=== PATIENT | female | born 1970 | race Caucasian/White ===

== ENCOUNTER → 2016-09-27 | Outpatient (CLI) | payer OTHER | END | disposition home or self-care (01) | LOC: LABWHC1 16:15 | PROVIDERS: ATTEND Internal Medicine Endocrinology, Diabetes & Metabolism | DX: C73 Malignant neoplasm of thyroid gland (principal) | CPT/HCPCS: 36415; 84443 ==

== ENCOUNTER → 2016-10-15 | Outpatient (CLI) | payer OTHER | END | disposition home or self-care (01) | LOC: LABWHC1 10:25 | PROVIDERS: ATTEND Internal Medicine Endocrinology, Diabetes & Metabolism | DX: C73 Malignant neoplasm of thyroid gland (principal) | CPT/HCPCS: 36415; 84432; 84443; 86800 ==

== ENCOUNTER → 2016-11-12 | Outpatient (CLI) | payer OTHER | LOC: LABWHC1 11:03 | PROVIDERS: ATTEND Internal Medicine Endocrinology, Diabetes & Metabolism | DX: C73 Malignant neoplasm of thyroid gland (principal) | CPT/HCPCS: 36415; 84432; 84443; 86800 ==

== ENCOUNTER → 2016-11-30 | Outpatient (CLI) | payer OTHER ==
--- NOTE | 2016-11-30 14:48 | US ---
EXAMINATION TYPE: US thyroid st tissue head/neck DATE OF EXAM: 11/30/2016 1:14 PM COMPARISON: NM study CLINICAL HISTORY: C73 Mailgnant neoplasm of thyroid gland. Pt has had thyroidectomy since previous US GLAND SIZE: Right Lobe: Surgically absent cm Left Lobe: Surgically absent cm Isthmus Thickness: Surgically absent cm Bilateral neck scanned, Probable hypoechoic lymph node right lateral neck= 0.5 cm AP measurement, pt also states pain at this site/ Probable hypoechoic lymph node left lateral neck= 0.5 cm AP measuremen t/ No evidence of residual thyroid tissue seen by ultrasound. IMPRESSION: 1. Normal post thyroidectomy thyroid. No recurrent mass is evident. 2. Probable lymph node left neck.
== END | disposition home or self-care (01) ==
LOC: RADUSWWP 12:47
PROVIDERS: ATTEND Internal Medicine Endocrinology, Diabetes & Metabolism
DX: C73 Malignant neoplasm of thyroid gland (principal); E89.0 Postprocedural hypothyroidism
CPT/HCPCS: 76536

== ENCOUNTER → 2016-12-03 | Outpatient (CLI) | payer OTHER ==
[2016-12-03 10:32] LABS: Anisocytosis Slight; CH 20.1; HCT 36.5 % (34.0-46.0); HGB 10.6 gm/dL (11.4-16.0); Hypochromasia Marked; MCH 20.9 pg (25.0-35.0); MCV 72.1 fL (80.0-100.0); Mean Platelet Volume 6.4; Microcytosis Moderate; RBC 5.06 m/uL (3.80-5.40); RDW 16.5 % (11.5-15.5); WBC 7.9 k/uL (3.8-10.6)
[2016-12-03 12:12] LABS: Prolactin 26.4 ng/mL (3.0-18.6)
[2016-12-03 17:07] LABS: ACTH 25.3 pg/mL (0.00-45.99)
== END | disposition home or self-care (01) ==
LOC: LABWHC1 09:59
PROVIDERS: ATTEND Internal Medicine Endocrinology, Diabetes & Metabolism
DX: C73 Malignant neoplasm of thyroid gland (principal)
CPT/HCPCS: 36415; 82024; 82533; 84146; 84439; 84443; 84480; 85027

== ENCOUNTER → 2016-12-24 | Outpatient (CLI) | payer OTHER ==
--- NOTE | 2016-12-24 14:37 | XR ---
EXAMINATION TYPE: XR elbow complete LT DATE OF EXAM ORDERED: 12/24/2016 2:33 PM HISTORY: M25.522 elbow pain. COMPARISON: None. FINDINGS: There is a minimally depressed fracture the left radial head. There is no significant join t effusion. IMPRESSION: MINIMALLY DEPRESSED FRACTURE OF THE LEFT RADIAL HEAD.
== END | disposition home or self-care (01) ==
LOC: RADXRMAIN 14:17
PROVIDERS: ATTEND Family Medicine
DX: S52.125A Nondisplaced fracture of head of left radius, initial encounter for closed fracture (principal)

== ENCOUNTER → 2017-01-17 | Outpatient (CLI) | payer OTHER | END | disposition home or self-care (01) | LOC: LABWHC1 12:16 | PROVIDERS: ATTEND Internal Medicine Endocrinology, Diabetes & Metabolism | DX: C73 Malignant neoplasm of thyroid gland (principal) | CPT/HCPCS: 36415; 84443 ==

== ENCOUNTER → 2017-03-04 | Outpatient (CLI) | payer OTHER ==
[2017-03-04 11:22] LABS: Anisocytosis Slight; CH 22.7; CHCM 30.8; HCT 34.8 % (34.0-46.0); HDW 2.78; HGB 10.9 gm/dL (11.4-16.0); Hypochromasia Moderate; MCHC 31.2 g/dL (31.0-37.0); MCV 73.8 fL (80.0-100.0); Mean Platelet Volume 7.2; Microcytosis Slight; RBC 4.72 m/uL (3.80-5.40); RDW 16.4 % (11.5-15.5); WBC 7.5 k/uL (3.8-10.6)
[2017-03-04 11:40] LABS: ALT 32 U/L (9-52); AST 15 U/L (14-36); Alkaline Phosphatase 84 U/L (38-126); Anion Gap 10 mmol/L; Blood Urea Nitrogen 16 mg/dL (7-17); Carbon Dioxide 23 mmol/L (22-30); Chloride 108 mmol/L (98-107); Glucose 95 mg/dL (74-99); Non-African American GFR(MDRD) >60 (>60 ml/min/1.73 sqM); Potassium 4.3 mmol/L (3.5-5.1); Sodium 141 mmol/L (137-145); Total Bilirubin 0.4 mg/dL (0.2-1.3); Total Protein 6.2 g/dL (6.3-8.2)
== END | disposition home or self-care (01) ==
LOC: LABWHC1 10:49
PROVIDERS: ATTEND Internal Medicine Endocrinology, Diabetes & Metabolism
DX: R53.83 Other fatigue (principal)
CPT/HCPCS: 36415; 80053; 82024; 82533; 85027

== ENCOUNTER → 2017-05-12 | Outpatient (CLI) | payer OTHER | END | disposition home or self-care (01) | LOC: LABWHC1 15:00 | PROVIDERS: ATTEND Internal Medicine Endocrinology, Diabetes & Metabolism | DX: E89.0 Postprocedural hypothyroidism (principal) | CPT/HCPCS: 36415; 84443 ==

== ENCOUNTER → 2017-09-26 | Outpatient (CLI) | payer OTHER | END | disposition home or self-care (01) | LOC: LABWHC1 12:29 | PROVIDERS: ATTEND Internal Medicine Endocrinology, Diabetes & Metabolism | DX: C73 Malignant neoplasm of thyroid gland (principal) | CPT/HCPCS: 36415; 84443 ==

== ENCOUNTER → 2017-11-21 | Outpatient (CLI) | payer OTHER ==
--- NOTE | 2017-11-21 13:13 | US ---
EXAMINATION TYPE: US thyroid st tissue head/neck DATE OF EXAM: 11/21/2017 COMPARISON: US 06/09/2017 CLINICAL HISTORY: C73 Malignant Neoplasm of Thyroid Gland; followup lymph nodes. GLAND SIZE: Right Lobe: surgically removed Left Lobe: surgically removed Isthmus Thickness: surgically removed US findings: No residual thyroid tissue is observed. Bilateral neck scanned: multiple right neck lymph nodes are imaged with largest at inferolateral neck noted as hypoechoic oval area = .2.7 x 1.9 x 0.6cm. Couple of lymph nodes are seen upper left neck w ith larger = 2.2 x 1.3 x 0.7cm. IMPRESSION: 1. No residual thyroid tissue. 2. Lymph nodes as discussed.
== END | disposition home or self-care (01) ==
LOC: RADUSWWP 10:58
PROVIDERS: ATTEND Internal Medicine Endocrinology, Diabetes & Metabolism
DX: C73 Malignant neoplasm of thyroid gland (principal)
CPT/HCPCS: 36415; 76536; 84443

== ENCOUNTER → 2018-02-10 | Outpatient (CLI) | payer OTHER ==
[2018-02-10 21:17] LABS: Thyroglobulin <0.20 ng/mL (1.60-59.90)
== END | disposition home or self-care (01) ==
LOC: LABWHC1 12:19
PROVIDERS: ATTEND Internal Medicine Endocrinology, Diabetes & Metabolism
DX: C73 Malignant neoplasm of thyroid gland (principal)
CPT/HCPCS: 36415; 84432; 84443; 86800

== ENCOUNTER → 2018-03-01 | Outpatient (CLI) | payer OTHER ==
--- NOTE | 2018-03-01 16:04 | XR ---
Lumbosacral spine HISTORY: Low back pain, right leg numbness 5 views of the lumbosacral spine There is a mild levoscoliosis centered at the mid lumbar spine. Lumbar vertebral bodies show preserve d height, bone mineralization mildly reduced. There is multilevel spondylosis with loss of disc heigh t at the intervertebral levels. No evident spondylolysis. IMPRESSION: Degenerative disc disease, consider MRI. Spinal curvature may be positional.
== END | disposition home or self-care (01) ==
LOC: RADXRMAIN 15:14
PROVIDERS: ATTEND Nurse Practitioner Women's Health
DX: M54.40 Lumbago with sciatica, unspecified side (principal); M51.36 Other intervertebral disc degeneration, lumbar region
CPT/HCPCS: 72110

== ENCOUNTER → 2018-03-09 | Outpatient (CLI) | payer OTHER ==
--- NOTE | 2018-03-09 11:34 | XR ---
EXAMINATION TYPE: XR thoracic spine complete DATE OF EXAM: 03/09/2018 COMPARISON: NONE HISTORY: Pain Alignment is anatomic. There is no compression deformities. Vertebral body height and disc interspa fermin are maintained. There is multilevel mild degenerative disc disease. IMPRESSION: 1. Multilevel degenerative disc disease.
== END | disposition home or self-care (01) ==
LOC: RADXRMAIN 10:52
PROVIDERS: ATTEND Family Medicine
DX: M51.34 Other intervertebral disc degeneration, thoracic region (principal)
CPT/HCPCS: 72072

== ENCOUNTER → 2018-03-14 | Outpatient (CLI) | payer OTHER ==
--- NOTE | 2018-03-16 08:25 | MM ---
Reason for exam: clinical finding. Last mammogram was performed 10 years ago. History: Patient is postmenopausal and has history of other cancer at age 46. Family history of breast cancer in maternal aunt. Indicated problem(s): palpable abnormality in the left breast. Physical Findings: Nurse Summary: a 0.5 cm nodule in the left breast at 1 o'clock (nurse imelda). MG Diagnostic Mammo w CAD RAMON Bilateral CC and MLO view(s) were taken. Spot compression MLO view(s) were taken of the right breast. LM and XCCL view(s) were taken of the left breast. Prior study comparison: August 27, 2008, mammogram, performed at [facility]. There are scattered fibroglandular densities. Superior asymmetric density in the right breast does not persist on additional views. High axillary node on the left. Palpable marker on the left also. These results were verbally communicated with the patient and result sheet given to the patient on 03/14/18. ASSESSMENT: Incomplete: need additional imaging evaluation, BI-RAD 0 RECOMMENDATION: Ultrasound of the left breast. (targeting palpable area at the axilla)
--- NOTE | 2018-03-16 08:28 | USB ---
Reason for exam: additional evaluation requested from prior study. History: Patient is postmenopausal and has history of other cancer at age 46. Family history of breast cancer in maternal aunt. US Breast Limited LT Left limited breast ultrasound including focal area of concern, retroareolar and axilla demonstrates no cystic or solid lesion seen. Scanned 12-3 o'clock and axilla. These results were verbally communicated with the patient and result sheet given to the patient on 03/14/18. ASSESSMENT: Negative, BI-RAD 1 RECOMMENDATION: Mammogram of both breasts in 1 year. Manage on a clinical basis. (any suspicious palpable areas)
== END | disposition home or self-care (01) ==
LOC: RADMAMWWP 10:27
PROVIDERS: ATTEND Family Medicine
DX: R92.8 Other abnormal and inconclusive findings on diagnostic imaging of breast (principal); N63.20 Unspecified lump in the left breast, unspecified quadrant; N64.4 Mastodynia
CPT/HCPCS: 77066

== ENCOUNTER 2018-03-30 08:59 | Day surgery (SDC) | payer OTHER ==
[2018-03-30 09:26] VITALS: RESP 18; TEMP 98.3
[2018-03-30] MEDS ORDERED: ALPRAZolam 0.5 MG TAB PO STA (09:29)
[2018-03-30 10:37] VITALS: BP 112/59; PULSE 65
--- NOTE | 2018-03-30 11:07 | US ---
ULTRASOUND GUIDED BILATERAL NECK LYMPH NODE BIOPSY: CLINICAL HISTORY: Bilateral neck lymph node request for biopsy FINDINGS: The procedure was explained to the patient. The risks, complications, benefits and alternatives were discussed and any questions were answered. Informed consent was obtained. Patient was placed supin e on the ultrasound table and prepped and draped in the usual sterile fashion. Utilizing a 25 gauge needle, five passes were made into the right and subsequently the left requested lymph node. Addition ally 18-gauge core samples obtained of the right lymph node. Due to the location of the left lymph no de a core sample could not be obtained. Patient was stable throughout the procedure. Pathology is pending. All elements of maximal barrier technique were utilized. IMPRESSION: 1. Successful ultrasound guided biopsy of bilateral lymph nodes.
== END 2018-03-30 10:52 | disposition home or self-care (01) ==
LOC: RADPROMAIN 08:59
PROVIDERS: ATTEND Otolaryngology Plastic Surgery within the Head & Neck
DX: R59.0 Localized enlarged lymph nodes (principal)
CPT/HCPCS: 10022; 38505; 76942; 88173; 88305

== ENCOUNTER → 2018-04-10 | Outpatient (CLI) | payer OTHER ==
--- NOTE | 2018-04-10 10:47 | CT ---
EXAMINATION TYPE: CT soft tissue neck w con DATE OF EXAM: 04/10/2018 COMPARISON: Ultrasound FNA 03/30/2018 HISTORY: 48 year-old female with cervical Lymphadenopathy, localized lymph nodes. TECHNIQUE: Contiguous axial scanning of the soft tissues of the neck performed with IV Contrast, leonides ent injected with 100 mL of Isovue 300. Coronal/sagittal reconstructions performed. CT DLP: 541.3 mGycm Automated exposure control for dose reduction was used. FINDINGS: Palpable markers placed on either side of the neck, along the anterior right lower neck and anterolat eral left mid neck. Visualized intracranial structures, orbits and globes, paranasal sinuses, and mastoid air cells appea r clear. Nasopharynx is clear. Mild lingual tonsillar hypertrophy. Oropharynx otherwise appears clear. The jennifer ttic and subglottic structures as well as the tracheal column are clear. Mild emphysematous change in the visualized upper lungs. Epiglottis and prevertebral soft tissues are within normal limits. Hypodensity adjacent to the aortic arch in the prevascular space visualized upper chest seems to paras espond to mild fluid in the pericardial recess. Thyroid gland is either atrophic or surgically absent. The submandibular and parotid glands appear sa tisfactory. Scattered prominent but nonenlarged cervical lymph nodes are present, station 2A on the left measurin g up to 9 mm. The left-sided palpable marker is located below this level. There is an additional 9 mm cervical lymph node here located deep to the sternocleidomastoid, axial image 37 and coronal image 3 5. The lower right cervical palpable marker also shows a prominent but not enlarged 1.1 cm lymph node al so deep to the sternocleidomastoid, reference axial image 28 and coronal image 32. Otherwise, no cervical lymphadenopathy or suspicious masses identified. Mild to moderate degenerative disc disease mid to lower cervical spine. IMPRESSION: A FEW SCATTERED PROMINENT BUT NONENLARGED CERVICAL LYMPH NODES MEASURE UP TO 9 MM ON THE LEFT AND 1.1 CM ON THE RIGHT. A LEFT ANTEROLATERAL MIDNECK PALPABLE MARKER IS PRESENT WELL A LOWER RIGHT AN TERIOR PALPABLE MARKER. THESE LYMPH NODES ARE PRESENT AT THE LEVEL OF THE PALPABLE MARKERS BUT ARE DE EP TO THE STERNOCLEIDOMASTOID. NO OTHER SUSPICIOUS LYMPHADENOPATHY OR MASS IS SEEN. THESE PALPABLE NO BLAYNE CAN BE FOLLOWED CLINICALLY.
== END | disposition home or self-care (01) ==
LOC: RADCTMAIN 08:43
PROVIDERS: ATTEND Otolaryngology Plastic Surgery within the Head & Neck
DX: I89.8 Other specified noninfective disorders of lymphatic vessels and lymph nodes (principal)
CPT/HCPCS: 70491; Q9967

== ENCOUNTER → 2018-05-15 | Outpatient (CLI) | payer OTHER ==
[2018-05-15 12:30] LABS: Calcium 8.4 mg/dL (8.4-10.2)
[2018-05-15 12:42] LABS: T4, Free (Free Thyroxine) 1.3 ng/dL (0.78-2.19)
== END | disposition home or self-care (01) ==
LOC: LABWHC1 11:32
PROVIDERS: ATTEND Internal Medicine Endocrinology, Diabetes & Metabolism
DX: E89.0 Postprocedural hypothyroidism (principal); E83.51 Hypocalcemia
CPT/HCPCS: 36415; 82310; 84439; 84443

== ENCOUNTER → 2018-07-17 | Outpatient (CLI) | payer OTHER ==
--- NOTE | 2018-07-17 12:13 | MM ---
Reason for exam: follow-up at short interval from prior study. Last mammogram was performed 4 months ago. History: Patient is postmenopausal and has history of other cancer at age 46. Family history of breast cancer in maternal aunt. Benign excisional biopsy of the left breast, 1999. Physical Findings: Nurse Summary: 1cm nodule in the left breast at 2 o'clock (nurse blas). MG 3D Diag Mammo W/Cad LT CC and MLO view(s) were taken of the left breast. Prior study comparison: March 14, 2018, bilateral MG diagnostic mammo w CAD RAMON. August 27, 2008, mammogram, performed at [facility]. There are scattered fibroglandular densities. No suspicious abnormality. These results were verbally communicated with the patient and result sheet given to the patient on 07/17/18. ASSESSMENT: Negative, BI-RAD 1 RECOMMENDATION: Routine screening mammogram of both breasts in 8 months. Back on schedule for February 2019.
== END | disposition home or self-care (01) ==
LOC: RADMAMWWP 10:46
PROVIDERS: ATTEND Family Medicine
DX: R92.8 Other abnormal and inconclusive findings on diagnostic imaging of breast (principal)
CPT/HCPCS: 77061; 77065

== ENCOUNTER → 2018-08-01 | Outpatient (CLI) | payer OTHER ==
--- NOTE | 2018-08-01 07:38 | US ---
EXAMINATION TYPE: US venous doppler duplex LE RT DATE OF EXAM: 08/01/2018 7:25 AM COMPARISON: NONE CLINICAL HISTORY: R22.41 Localized swelling, mass and lump. Patient states swelling right leg with se nsation of lump on bottom foot, although none felt. SIDE PERFORMED: Right TECHNIQUE: The lower extremity deep venous system is examined utilizing real time linear array sonog brenton with graded compression, doppler sonography and color-flow sonography. VESSELS IMAGED: External Iliac Vein (EIV) Common Femoral Vein Deep Femoral Vein Greater Saphenous Vein * Femoral Vein Popliteal Vein Small Saphenous Vein * Proximal Calf Veins (* superficial vessels) Grayscale, color doppler, spectral doppler imaging performed of the deep veins of the right lower ext remity. There is normal flow, compressibility, vascular waveforms. Right Leg: Negative for DVT IMPRESSION: No sonographic evidence of deep venous thrombosis within the right lower extremity.
== END ==
LOC: RADUSWWP 06:54
PROVIDERS: ATTEND Nurse Practitioner Women's Health
DX: R22.41 Localized swelling, mass and lump, right lower limb (principal); Z88.0 Allergy status to penicillin; Z88.8 Allergy status to other drugs, medicaments and biological substances

== ENCOUNTER → 2018-09-14 | Outpatient (CLI) | payer OTHER ==
[2018-09-14 21:58] LABS: Thyroglobulin <0.20 ng/mL (1.60-59.90)
== END ==
LOC: LABWHC1 13:59
PROVIDERS: ATTEND Internal Medicine Endocrinology, Diabetes & Metabolism
DX: C73 Malignant neoplasm of thyroid gland (principal)
CPT/HCPCS: 36415; 84432; 84443; 86800

== ENCOUNTER → 2018-10-24 | Outpatient (CLI) | payer OTHER ==
[2018-10-24 22:11] LABS: Thyroglobulin <0.20 ng/mL (1.60-59.90)
== END | disposition home or self-care (01) ==
LOC: LABWHC1 13:34
PROVIDERS: ATTEND Internal Medicine Endocrinology, Diabetes & Metabolism
DX: C73 Malignant neoplasm of thyroid gland (principal)
CPT/HCPCS: 36415; 84432; 84443; 86800

== ENCOUNTER → 2018-12-07 | Outpatient (CLI) | payer OTHER ==
[2018-12-07 13:25] LABS: HCT 37.1 % (34.0-46.0); HGB 11.6 gm/dL (11.4-16.0); Hypochromasia Slight; MCH 25.4 pg (25.0-35.0); MCHC 31.3 g/dL (31.0-37.0); MCV 81.2 fL (80.0-100.0); Mean Platelet Volume 7.1; Platelet Count 323 k/uL (150-450); RBC 4.57 m/uL (3.80-5.40); RDW 15.1 % (11.5-15.5); WBC 6.3 k/uL (3.8-10.6)
[2018-12-07 19:58] LABS: T4, Free (Free Thyroxine) 1.4 ng/dL (0.80-1.80)
[2018-12-07 20:00] LABS: Albumin 4.2 g/dL (3.80-4.90); Anion Gap 8.4 mmol/L (4.00-12.00); Calcium 7.9 mg/dL (8.7-10.3); Carbon Dioxide 26.6 mmol/L (21.6-31.8); Globulin 1.4 g/dL (1.6-3.3); Potassium 4.2 mmol/L (3.5-5.5); Total Bilirubin 0.4 mg/dL (0.3-1.2); Total Protein 5.6 g/dL (6.2-8.2)
== END | disposition home or self-care (01) ==
LOC: LABWHC1 13:03
PROVIDERS: ATTEND Internal Medicine Endocrinology, Diabetes & Metabolism
DX: C73 Malignant neoplasm of thyroid gland (principal)
CPT/HCPCS: 36415; 80053; 84439; 84443; 84480; 85027

== ENCOUNTER → 2019-03-12 | Outpatient (CLI) | payer OTHER | END | disposition home or self-care (01) | LOC: LABWHC1 13:42 | PROVIDERS: ATTEND Internal Medicine Endocrinology, Diabetes & Metabolism | DX: C73 Malignant neoplasm of thyroid gland (principal) | CPT/HCPCS: 36415; 84432; 84443; 86800 ==

== ENCOUNTER → 2019-06-18 | Outpatient (CLI) | payer OTHER | END | disposition home or self-care (01) | LOC: LABWHC1 13:16 | PROVIDERS: ATTEND Internal Medicine Endocrinology, Diabetes & Metabolism | DX: C73 Malignant neoplasm of thyroid gland (principal) | CPT/HCPCS: 36415; 84432; 84443; 86800 ==

== ENCOUNTER → 2019-08-27 | Outpatient (CLI) | payer OTHER | END | disposition home or self-care (01) | LOC: LABWHC1 15:25 | PROVIDERS: ATTEND Internal Medicine Endocrinology, Diabetes & Metabolism | DX: C73 Malignant neoplasm of thyroid gland (principal) | CPT/HCPCS: 36415; 84432; 84443; 86800 ==

== ENCOUNTER → 2019-10-10 | Outpatient (CLI) | payer OTHER | END | disposition home or self-care (01) | LOC: LABWHC1 12:12 | PROVIDERS: ATTEND Internal Medicine Endocrinology, Diabetes & Metabolism | DX: C73 Malignant neoplasm of thyroid gland (principal) | CPT/HCPCS: 36415; 84443 ==

== ENCOUNTER → 2020-04-07 | Outpatient (CLI) | payer OTHER ==
--- NOTE | 2020-04-07 17:57 | US ---
EXAMINATION TYPE: US thyroid st tissue head/neck DATE OF EXAM: 04/07/2020 COMPARISON: 12/02/2017 CLINICAL HISTORY: 42-year-old female C73 Malignant neoplasm Thyroid. Enlarged lymph nodes with right lower neck node removed. Thyroid removed 4 years ago per patient. TECHNIQUE: The thyroidectomy bed as well as both sides of the neck were scanned. FINDINGS: Thyroid gland surgically removed. Bilateral neck scanned: no lymphadenopathy seen at right neck. At Left superior neck, multiple lymph nodes are seen with largest = 2.1 x 1.1 x 0.6cm. IMPRESSION: 1. The thyroidectomy bed appears sonographically clear. 2. Prominent lymph nodes upper left neck measuring up to 1.1 cm short axis. Correlate with tumor talha ers and clinical/ultrasound follow-up.
== END | disposition home or self-care (01) ==
LOC: RADUSWWP 13:53
PROVIDERS: ATTEND Internal Medicine Endocrinology, Diabetes & Metabolism
DX: C73 Malignant neoplasm of thyroid gland (principal); E89.0 Postprocedural hypothyroidism
CPT/HCPCS: 76536

== ENCOUNTER → 2020-04-08 | Outpatient (CLI) | payer OTHER | END | disposition home or self-care (01) | LOC: LABWHC1 13:52 | PROVIDERS: ATTEND Internal Medicine Endocrinology, Diabetes & Metabolism | DX: C73 Malignant neoplasm of thyroid gland (principal) | CPT/HCPCS: 36415; 84432; 84443; 86800 ==

== ENCOUNTER 2020-05-14 08:49 | Day surgery (SDC) | payer MEDICARE, OTHER ==
[2020-05-14] MEDS ORDERED: ALPRAZolam 0.5 MG TAB PO ONE (09:18)
[2020-05-14 09:27] VITALS: TEMP 98
[2020-05-14 11:16] VITALS: BP 119/68; PULSE 70; RESP 16
--- NOTE | 2020-05-14 13:58 | US ---
EXAMINATION TYPE: US FNA first lesion DATE OF EXAM: 05/14/2020 COMPARISON: Ultrasound 04/07/2020, CT 04/10/2018 HISTORY: Thyroid carcinoma, adenopathy. Maximal barrier technique was utilized. After informed consent, skin overlying the left neck lymph n ode was localized with ultrasound and the overlying skin prepped and draped. Ultrasound was utilized using sterile technique. Lidocaine was used for local anesthesia. Leroy passes with a 25-gauge needle were made into left neck node and aspirated specimen was submitted to cytology. Following the proced ure hemostasis achieved. No immediate complication. The patient discharged in stable condition. IMPRESSION: STATUS POST ULTRASOUND GUIDED FINE NEEDLE ASPIRATION OF LEFT NECK LYMPH NODE, PATHOLOGY I S PENDING. THIS PROCEDURE WAS PERFORMED BY THE UNDERSIGNED.
== END 2020-05-14 11:05 | disposition home or self-care (01) ==
LOC: RADPROMAIN 08:49
PROVIDERS: ATTEND Otolaryngology Plastic Surgery within the Head & Neck
DX: C73 Malignant neoplasm of thyroid gland (principal); R59.0 Localized enlarged lymph nodes
CPT/HCPCS: 10005; 88173; 88305

== ENCOUNTER → 2020-06-02 | Outpatient (CLI) | payer MEDICARE ==
[2020-06-02 13:48] VITALS: RESP 18; TEMP 98
[2020-06-02] MEDS: THYROTROPIN ALFA 1.1 MG VIAL IM NR (13:55)
[2020-06-03] MEDS: THYROTROPIN ALFA 1.1 MG VIAL IM NR (13:39)
[2020-06-03 13:55] VITALS: BP 139/78; PULSE 78
--- NOTE | 2020-06-09 10:01 | NM ---
EXAMINATION TYPE: NM I-131 THYROID CANCER METASTATIC SCAN WHOLE BODY DATE OF EXAM: 06/05/2020 HISTORY: 50-year-old female status post I-131 thyroid ablation on 06/23/2016. 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 COMPARISON: 07/02/2016. TECHNIQUE: Following the oral administration of 5.0 mCi I-131, whole body scan was performed 48 hours after radiotracer administration. FINDINGS: There is physiologic uptake within the salivary glands, nasopharynx, and also within the stomach, col on, and bladder. There is a moderate-sized focus of activity in the right upper quadrant adjacent to the proximal quick sverse colon that could represent activity at the gastric pylorus vs abnormal activity such as within the liver. No other areas of unexpected activity are identified. IMPRESSION: 1. No abnormal tracer activity within the neck to suggest locoregional recurrence. 2. However, an area of increased activity in the right upper quadrant adjacent to the proximal transv erse colon could be within the distal stomach or could represent abnormal activity such as within the liver. Correlation with tumor markers and contrast-enhanced CT of the abdomen/pelvis can further romero luate.
== END | disposition home or self-care (01) ==
LOC: RADNMMAIN 13:26 → EDSTATUS 13:30
PROVIDERS: ATTEND Internal Medicine Endocrinology, Diabetes & Metabolism
DX: C73 Malignant neoplasm of thyroid gland (principal); R94.8 Abnormal results of function studies of other organs and systems
CPT/HCPCS: 96372; J3240; 78018

== ENCOUNTER → 2020-06-24 | Outpatient (CLI) | payer MEDICARE ==
--- NOTE | 2020-06-24 10:28 | CT ---
EXAMINATION TYPE: CT soft tissue neck w con DATE OF EXAM: 06/24/2020 COMPARISON: 04/10/2018 HISTORY: 50 year-old female history of thyroid CA, lymphadenopathy TECHNIQUE: Contiguous axial scanning of the soft tissues of the neck performed with IV Contrast, leonides ent injected with 100 mL of Isovue 300. Coronal/sagittal reconstructions performed. CT DLP: 807.9 mGycm Automated exposure control for dose reduction was used. FINDINGS: Visualized intracranial structures, orbits and globes, paranasal sinuses, mastoid air cells appear cl ear. Nasopharynx is clear. Similar mild bilateral palatine tonsillar hypertrophy and mild lingual tonsillar hypertrophy. The epiglottis and prevertebral soft tissues are within normal limits. Stable slight asymmetric prominence to the left aryepiglottic fold and smaller left piriform sinus. S ubglottic structures and visualized upper lungs are clear. No abnormal soft tissue identified within the thyroidectomy bed. The previous right lower cervical lymph node deep to the sternocleidomastoid is no longer identified. A prominent 8 mm right upper cervical lymph node, axial image 62 and coronal image 36 remains unchang ed. Prominent left upper cervical lymph node measuring up to 1 cm short axis (sagittal image 60 and axial image 61) remains unchanged. The lymph node at the level of the thyroid cartilage deep to the left sternocleidomastoid is again vi sualized measuring 1 cm short axis, unchanged from 2018. (Refer to axial image 53 and coronal image 4 1. No new or progressive cervical lymphadenopathy is identified. The submandibular and parotid glands are satisfactory. Mild degenerative disc disease mid cervical spine. IMPRESSION: 1. A PREVIOUS RIGHT LOWER CERVICAL LYMPH NODE DEEP TO THE STERNOCLEIDOMASTOID MUSCLE SEEN IN 2018 HAS RESOLVED. 2. A COUPLE OTHER PROMINENT BUT NONENLARGED LEFT-SIDED CERVICAL LYMPH NODES MEASURING UP TO 1 CM PADMINI IN UNCHANGED FROM 2018. 3. NO NEW OR PROGRESSIVE CERVICAL LYMPHADENOPATHY. THE THYROIDECTOMY BED APPEARS CLEAR.
== END | disposition home or self-care (01) ==
LOC: RADCTMAIN 08:52
PROVIDERS: ATTEND Otolaryngology Plastic Surgery within the Head & Neck
DX: R59.0 Localized enlarged lymph nodes (principal)
CPT/HCPCS: 70491; Q9967

== ENCOUNTER → 2020-08-05 | Outpatient (CLI) | payer MEDICARE | END | disposition home or self-care (01) | LOC: LABWHC1 12:03 | PROVIDERS: ATTEND Internal Medicine Endocrinology, Diabetes & Metabolism | DX: C73 Malignant neoplasm of thyroid gland (principal) | CPT/HCPCS: 36415; 84432; 84443; 86800 ==

== ENCOUNTER → 2020-08-19 | Outpatient (CLI) | payer MEDICARE ==
--- NOTE | 2020-08-19 10:16 | CT ---
EXAMINATION TYPE: CT abdomen pelvis wo/w con DATE OF EXAM: 08/19/2020 COMPARISON: Correlation nuclear medicine I-131 whole body scan 06/05/2020 HISTORY: 50-year-old female C73, malignant neoplasm of thyroid, abdominal pain TECHNIQUE: Contiguous axial scanning of the abdomen and pelvis before and after administration of 100 ml Isovue 300 IV contrast. Delayed images through the kidneys and coronal/sagittal reconstructions performed. CT DLP: 5726.8 mGycm Automated exposure control for dose reduction was used. FINDINGS: Heart upper limits of normal in size without pericardial effusion. Lung bases clear without pleural e ffusion. There may be mild fatty infiltration of the liver. There are some artifacts over the liver due to patient's left arm down. No suspicious focal liver les ion is identified. Portal venous system is patent. No biliary ductal dilatation. Gallbladder, adrenal glands, spleen (with tiny anterior and hilar splenules), and pancreas appear wit hin normal limits. Extrarenal pelvis on the left. Symmetric uptake and excretion of contrast from both kidneys. Tiny 8 m m cortical hypodensity lateral right kidney too small for accurate CT characterization, probable tiny cyst. No dilated small bowel, free fluid, free air. No mesenteric or retroperitoneal lymphadenopathy. Mild stool burden. No pericolonic inflammatory change. Bladder is urine distended. Uterus surgically absent. Neither ovary clearly identified. No abnormal f luid collection in the pelvis or pelvic lymphadenopathy. Bones: Mild degenerative change at the hips. IMPRESSION: NO ACUTE INFLAMMATORY PROCESS IDENTIFIED IN THE ABDOMEN OR PELVIS. NO SUSPICIOUS LYMPHADENOPATHY OR M ASS IS IDENTIFIED. AN 8 MM CORTICAL HYPODENSITY IN THE LATERAL RIGHT KIDNEY IS TOO SMALL FOR ACCURATE CT CHARACTERIZATION AND PROBABLY REPRESENTS A TINY CYST.
== END | disposition home or self-care (01) ==
LOC: RADCTMAIN 07:32
PROVIDERS: ATTEND Internal Medicine Endocrinology, Diabetes & Metabolism
DX: R93.421 Abnormal radiologic findings on diagnostic imaging of right kidney (principal); C73 Malignant neoplasm of thyroid gland
CPT/HCPCS: 74178; Q9967

== ENCOUNTER → 2020-10-28 | Outpatient (CLI) | payer MEDICARE | LOC: LABWHC1 14:13 | PROVIDERS: ATTEND Internal Medicine Endocrinology, Diabetes & Metabolism | DX: C73 Malignant neoplasm of thyroid gland (principal) | CPT/HCPCS: 36415; 84432; 84443; 86800 ==

== ENCOUNTER → 2020-12-30 | Outpatient (CLI) | payer MEDICARE | END | disposition home or self-care (01) | LOC: LABWHC1 12:34 | PROVIDERS: ATTEND Internal Medicine Endocrinology, Diabetes & Metabolism | DX: C73 Malignant neoplasm of thyroid gland (principal) | CPT/HCPCS: 36415; 84432; 84443; 86800 ==

== ENCOUNTER → 2021-02-26 | Outpatient (CLI) | payer MEDICARE | END | disposition home or self-care (01) | LOC: LABWHC1 12:27 | PROVIDERS: ATTEND Internal Medicine Endocrinology, Diabetes & Metabolism | DX: C73 Malignant neoplasm of thyroid gland (principal) | CPT/HCPCS: 36415; 84432; 84443; 86800 ==

== ENCOUNTER → 2021-04-27 | Outpatient (CLI) | payer MEDICARE | END | disposition home or self-care (01) | LOC: LABWHC1 12:38 | PROVIDERS: ATTEND Internal Medicine Endocrinology, Diabetes & Metabolism | DX: C73 Malignant neoplasm of thyroid gland (principal) | CPT/HCPCS: 36415; 84432; 84443; 86800 ==

== ENCOUNTER → 2021-07-28 | Outpatient (CLI) | payer MEDICARE ==
--- NOTE | 2021-07-28 11:48 | US ---
EXAMINATION TYPE: US thyroid st tissue head/neck DATE OF EXAM: 07/28/2021 COMPARISON: CT 06/24/20, US 04/07/20 CLINICAL HISTORY: 51-year-old female C73 Malignant neoplasm of thyroid gland. Thyroidectomy 5 years a go. TECHNIQUE: Multiple sonographic images of the thyroidectomy bed were obtained. GLAND SIZE: The thyroid gland is surgically absent. No residual or suspicious tissue is identified. Physical Security Manager notes: Bilateral neck scanned, no evidence of lymphadenopathy. IMPRESSION: Negative thyroidectomy bed remains clear. No suspicious cervical lymphadenopathy identified.
== END | disposition home or self-care (01) ==
LOC: RADUSWWP 09:54
PROVIDERS: ATTEND Internal Medicine Endocrinology, Diabetes & Metabolism
DX: Z85.850 Personal history of malignant neoplasm of thyroid (principal); E89.0 Postprocedural hypothyroidism
CPT/HCPCS: 76536; 84432; 84443; 86800

== ENCOUNTER → 2021-09-15 | Outpatient (CLI) | payer MEDICARE ==
[2021-09-15 18:19] LABS: HCT 39.4 % (37.2-46.3); HGB 11.8 g/dL (12.0-15.0); MCH 25.4 pg (27.0-32.0); MCHC 29.9 g/dL (32.0-37.0); MCV 84.9 fL (80.0-97.0); Mean Platelet Volume 10.4 fL (9.5-12.2); Platelet Count 323 X 10*3/uL (140-440); RBC 4.64 X 10*6/uL (4.10-5.20); RDW 15.6 % (11.5-14.5); WBC 6.83 X 10*3/uL (4.50-10.00)
[2021-09-15 18:31] LABS: % Iron Saturation 20.17 (12.00-45.00)
== END | disposition home or self-care (01) ==
LOC: LABWHC1 13:23
PROVIDERS: ATTEND Internal Medicine Endocrinology, Diabetes & Metabolism
DX: C73 Malignant neoplasm of thyroid gland (principal)
CPT/HCPCS: 36415; 83540; 83550; 84432; 84443; 85027; 86800

== ENCOUNTER → 2022-03-22 | Outpatient (CLI) | payer MEDICARE | END | disposition home or self-care (01) | LOC: LABWHC1 13:31 | PROVIDERS: ATTEND Internal Medicine Endocrinology, Diabetes & Metabolism | DX: C73 Malignant neoplasm of thyroid gland (principal) | CPT/HCPCS: 36415; 84432; 84443; 86800 ==

== ENCOUNTER → 2022-08-27 | Outpatient (CLI) | payer MEDICARE ==
--- NOTE | 2022-08-27 14:56 | US ---
EXAMINATION TYPE: US thyroid st tissue head/neck DATE OF EXAM: 08/27/2022 COMPARISON: US 07/28/2021 CLINICAL HISTORY: C73 MALIGNANT NEOPLASM OF THYROID GLAND. H/O thyroid CA, removed in 2017 GLAND SIZE: Right Lobe: Surgically absent Left Lobe: Surgically absent Bilateral thyroid bed appeared wnl. Left lateral neck, just anterior to left CCA there is a probable lymph node= 2.1 x 0.6 x 0.6 cm with slightly thickened cortex. IMPRESSION: 1. No suspicious nodules within the thyroidectomy beds. 2. Probable lymph node within the left lateral neck with slightly thickened cortex. Consider further evaluation with nuclear medicine thyroid scan versus short-term follow-up.
== END | disposition home or self-care (01) ==
LOC: RADUSWWP 14:22
PROVIDERS: ATTEND Internal Medicine Endocrinology, Diabetes & Metabolism
DX: C73 Malignant neoplasm of thyroid gland (principal)
CPT/HCPCS: 76536

== ENCOUNTER → 2022-11-19 | Outpatient (CLI) | payer MEDICARE ==
--- NOTE | 2022-11-19 11:10 | MM ---
Reason for Exam: Clinical finding. Last mammogram was performed 4 year(s) and 9 month(s) ago. Patient History: Menarche at age 12. First Full-Term at age 29. Left ovary removed at age 31. Right ovary removed at age 31. Hysterectomy at age 31. Postmenopausal. Other cancer, age 46. 2000, Benign Excisional Biopsy on the left side. Maternal aunt had breast cancer. Risk Values: Annamarie 5 year model risk: 1.4%. NCI Lifetime model risk: 12.7%. Prior Study Comparison: 03/14/2018 Bilateral Diagnostic Mammogram, [facility]. 03/14/2018 Left Diagnostic Ultrasound, [facility]. 07/17/2018 Left Diagnostic Mammogram, [facility]. Tissue Density: There are scattered fibroglandular densities. Findings: Analyzed By CAD. No new suspicious mass, calcifications, or architectural distortion within either breast. Overall Assessment: Negative, BI-RAD 1 Management: Screening Mammogram of both breasts in 1 year. A clinical breast exam by your physician is recommended on an annual basis and results should be correlated with mammographic findings. This exam should not preclude additional follow-up of suspicious palpable abnormalities. Results were given to the patient verbally at the time of exam. Electronically signed and approved by: Lázaro Casanova D.O.
--- NOTE | 2022-11-19 11:30 | BD ---
EXAMINATION TYPE: Axial Bone Density DATE OF EXAM: 11/19/2022 CLINICAL HISTORY: 52 years old Female. ICD-10 CODE: Z13.820 screen osteoporosis Height: 5 ft 6 in Weight: 323 FRAX RISK QUESTIONS: Alcohol (3 or more units per day): no Family History (Parent hip fracture): no Glucocorticoids (More than 3mos): yes (Ex: prednisone, prednisolone, methylprednisolone, dexamethasone, and hydrocortisone). History of Fracture in Adulthood: yes Secondary Osteoporosis: 1. Type 1 Diabetes: no 2. Hyperthyroidism: no 3. Menopause before 45: yes 4. Malnutrition: no 5. Chronic liver disease: no Rheumatoid Arthritis: no Current Tobacco Use: no RISK FACTORS HISTORY OF: Surgery to Spine/Hip(right/left)/Wrist (right/left): no Family History of Osteoporosis: no Active: no Diet low in dairy products/other sources of calcium: no Postmenopausal woman: yes Take estrogen and/or progesterone medications: none now Lost more than 2 inches in height since high school: no Frequent falls: no Poor Health: fair Hyperparathyroidism: no Adrenal Insufficiency:stage one kidney failure MEDICATIONS: Thyroid Medications: yes Which medication: armour thyroid How Long: six weeks Additional Medications: zoloft ,omeprazole, armour thyroid Additional History: thyroid cancer removed and radiation EXAM MEASUREMENTS: Bone mineral densitometry was performed using the Spoondate System. Bone mineral density as measured about the Lumbar spine is: ----- L1-L4(G/cm2): 1.119 T Score Values are as follows: ----- L1: -0.3 ----- L2: -1.1 ----- L3: -0.6 ----- L4: -0.3 ----- L1-L4: -0.5 Z Score Values are as follows: ----- L1: -1.0 ----- L2: -1.8 ----- L3: -1.3 ----- L4: -1.0 ----- L1-L4: -1.2 baseline Bone mineral density about the R hip (g/cm2): 0.845 Bone mineral density about the L hip (g/cm2): 0.868 T Score values are as follows: -----R Neck: -1.4 -----L Neck: -1.2 -----R Total: -1.5 -----L Total: -0.6 Z Score values are as follows: -----R Neck: -1.3 -----L Neck: -1.2 -----R Total: -1.9 -----L Total: -0.9 baseline FRAX%s: The graph provided illustrates a 7.0% chance for a major osteoporotic fx and a 0.5% chance fo r the hips probability for fx in 10 years time. IMPRESSION: Osteopenia (T Score between -2.5 and -1). There is slightly increased risk of fracture and the patient may be considered for treatment. Re-Screen 2-5 years. NOTE: T-SCORE=SD OF THE YOUNG ADULT MEAN.
== END | disposition home or self-care (01) ==
LOC: RADBDWWP 09:59
PROVIDERS: ATTEND Family Medicine
DX: Z13.820 Encounter for screening for osteoporosis (principal); M85.89 Other specified disorders of bone density and structure, multiple sites; N63.0 Unspecified lump in unspecified breast; Z78.0 Asymptomatic menopausal state; Z80.3 Family history of malignant neoplasm of breast
CPT/HCPCS: 77080; 77066; G0279; 77062

== ENCOUNTER → 2022-11-23 | Outpatient (CLI) | payer MEDICARE | END | disposition home or self-care (01) | LOC: LABWHC1 13:16 | PROVIDERS: ATTEND Internal Medicine Endocrinology, Diabetes & Metabolism | DX: C73 Malignant neoplasm of thyroid gland (principal) | CPT/HCPCS: 36415; 84432; 84443; 86800 ==

== ENCOUNTER → 2023-02-18 | Outpatient (CLI) | payer MEDICARE | END | disposition home or self-care (01) | LOC: LABWHC1 12:46 | PROVIDERS: ATTEND Internal Medicine Endocrinology, Diabetes & Metabolism | DX: C73 Malignant neoplasm of thyroid gland (principal) | CPT/HCPCS: 36415; 84443 ==

== ENCOUNTER → 2023-10-25 | Outpatient (CLI) | payer MEDICARE ==
--- NOTE | 2023-10-26 10:56 | US ---
EXAMINATION TYPE: US thyroid st tissue head/neck DATE OF EXAM: 10/25/2023 COMPARISON: 08/27/2022 CLINICAL INDICATION: Female, 53 years old with history of C73 MALIGNANT NEOPLASM OF THYROID GLAND; Th yroid CA removed 6 years ago GLAND SIZE: Right Lobe: Surgically absent Left Lobe: Surgically absent NODULES RIGHT: # of nodules measured on right:0 LEFT: # of nodules measured on left: 0 ISTHMUS: # of nodules measured in the isthmus: 0 Associate Professor Of Economics notes: Hypoechoic area seen left lateral neck 1.8 x .5 x 1.2 cm, smaller than previous exam. Previously nata ured 2.1 x 0.6 x 1.7 cm. IMPRESSION: 1. Status post total thyroidectomy. No suspicious soft tissue at the thyroidectomy bed. 2. However, an oval nodule along the left lateral neck is redemonstrated. It is currently stable to s lightly smaller at 1.8 x 1.2 x 0.5 cm versus 2.1 x 1.7 x 0.6 cm, previously. Ongoing follow-up as cli nically indicated.
== END | disposition home or self-care (01) ==
LOC: RADUSWWP 09:55
PROVIDERS: ATTEND Internal Medicine Endocrinology, Diabetes & Metabolism
DX: C73 Malignant neoplasm of thyroid gland (principal); E04.1 Nontoxic single thyroid nodule
CPT/HCPCS: 76536

== ENCOUNTER → 2024-01-12 | Outpatient (CLI) | payer MEDICARE ==
--- NOTE | 2024-01-13 14:03 | MM ---
Reason for Exam: Screening (asymptomatic). Last mammogram was performed 1 year(s) and 1 month(s) ago. Patient History: Menarche at age 12. First Full-Term at age 29. Left ovary removed at age 31. Right ovary removed at age 31. Hysterectomy at age 31. Postmenopausal. Other cancer, age 46. 2000, Benign Excisional Biopsy on the left side. Maternal aunt had breast cancer. Risk Values: Annamarie 5 year model risk: 1.5%. NCI Lifetime model risk: 12.5%. Prior Study Comparison: 03/14/2018 Bilateral Diagnostic Mammogram, [facility]. 07/17/2018 Left Diagnostic Mammogram, [facility]. 11/19/2022 Bilateral MG 3D diag mammo w/cad RAMON, [facility]. Tissue Density: There are scattered areas of fibroglandular density. Findings: Analyzed By CAD. The pattern is symmetrical. No significant interval change No suspicious groups of microcalcifications, spiculated or lobular masses, architectural distortion or other secondary signs of malignancy are mammographically apparent. Overall Assessment: Benign, BI-RAD 2 Management: Screening Mammogram of both breasts in 1 year. A negative mammogram report should not preclude additional follow up of suspicious palpable abnormalities. Patient should continue monthly self breast exam. A clinical breast exam by your physician is recommended on an annual basis and results should be correlated with mammographic findings. Note on Annamarie scores and lifetime risk: 1. A Annamarie score greater than 3% is considered moderate risk. If this is the case, consider specialist referral to assess eligibility for a risk reducing agent. 2. If overall lifetime risk for the development of breast cancer is 20% or higher, the patient may qualify for future screening with alternating mammogram and breast MRI. Electronically signed and approved by: Jake Jules D.O. Radiologis
== END | disposition home or self-care (01) ==
LOC: RADMAMWWP 11:21
PROVIDERS: ATTEND Family Medicine
DX: Z12.31 Encounter for screening mammogram for malignant neoplasm of breast (principal); Z78.0 Asymptomatic menopausal state; Z80.3 Family history of malignant neoplasm of breast
CPT/HCPCS: 77063; 77067

== ENCOUNTER → 2024-05-03 | Outpatient (CLI) | payer MEDICARE ==
[2024-05-03 18:57] LABS: ALT 16 U/L (8-44); AST 16 U/L (13-35); Albumin/Globulin Ratio 2.11 Ratio (1.60-3.17); Alkaline Phosphatase 87 U/L (41-126); BUN/Creat Ratio 15.75 Ratio (12.00-20.00); Blood Urea Nitrogen 12.6 mg/dL (9.0-27.0); Calcium 8.1 mg/dL (8.7-10.3); Carbon Dioxide 25.5 mmol/L (21.6-31.8); Chloride 107 mmol/L (96-109); Globulin 1.9 g/dL (1.6-3.3); Glucose 94 mg/dL (70-110); Potassium 4.6 mmol/L (3.5-5.5); Sodium 143 mmol/L (135-145); Total Bilirubin 0.4 mg/dL (0.3-1.2); Total Protein 5.9 g/dL (6.2-8.2)
== END | disposition home or self-care (01) ==
LOC: LABWHC1 14:41
PROVIDERS: ATTEND Internal Medicine Endocrinology, Diabetes & Metabolism
DX: C73 Malignant neoplasm of thyroid gland (principal)
CPT/HCPCS: 36415; 80053; 82306; 83970; 84432; 84443; 86800

== ENCOUNTER → 2024-08-16 | Outpatient (CLI) | payer MEDICARE | END | disposition home or self-care (01) | LOC: LABWHC1 15:07 | PROVIDERS: ATTEND Internal Medicine Endocrinology, Diabetes & Metabolism | DX: C73 Malignant neoplasm of thyroid gland (principal) | CPT/HCPCS: 36415; 84432; 84443; 86800 ==

== ENCOUNTER → 2024-10-08 | Outpatient (CLI) | payer MEDICARE | END | disposition home or self-care (01) | LOC: LABWHC1 15:40 | PROVIDERS: ATTEND Internal Medicine Endocrinology, Diabetes & Metabolism | DX: C73 Malignant neoplasm of thyroid gland (principal) | CPT/HCPCS: 36415; 84432; 84443; 86800 ==

== ENCOUNTER → 2025-01-01 | Outpatient (CLI) | payer MEDICARE | END | disposition home or self-care (01) | LOC: LABWHC1 16:03 | PROVIDERS: ATTEND Internal Medicine Endocrinology, Diabetes & Metabolism | DX: C73 Malignant neoplasm of thyroid gland (principal) | CPT/HCPCS: 36415; 84432; 84443; 86800 ==

== ENCOUNTER → 2025-01-01 | Outpatient (CLI) | payer MEDICARE ==
--- NOTE | 2025-01-02 07:48 | US ---
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 FINDINGS AND IMPRESSION: Trigonometry Tutor notes: Normal appearing soft tissue scan with no residual tissue seen. Bilateral neck scanned, no evidence of lymphadenopathy. [facility], Workstation: [id number], 01/02/2025 7:46 AM
== END | disposition home or self-care (01) ==
LOC: RADUSWWP 16:18
PROVIDERS: ATTEND Internal Medicine Endocrinology, Diabetes & Metabolism
DX: C73 Malignant neoplasm of thyroid gland (principal)
CPT/HCPCS: 76536

== ENCOUNTER → 2025-01-29 | Outpatient (CLI) | payer MEDICARE ==
--- NOTE | 2025-01-29 15:55 | BD ---
EXAMINATION TYPE: Axial Bone Density DATE OF EXAM: 01/29/2025 CLINICAL HISTORY: 55 years old Female. ICD-10 CODE: M81.0 AGE RELATED OSTEOPOROSIS , Additional Hist ory: Height: 329.1 Weight: 329.1 FRAX RISK QUESTIONS: Alcohol (3 or more units per day): no Family History (Parent hip fracture): no Glucocorticoids (More than 3mos): no (Ex: prednisone, prednisolone, methylprednisolone, dexamethasone, and hydrocortisone). History of Fracture in Adulthood: yes Secondary Osteoporosis: 1. Type 1 Diabetes: no 2. Hyperthyroidism: no 3. Menopause before 45: yes 4. Malnutrition: no 5. Chronic liver disease: no Rheumatoid Arthritis: no Current Tobacco Use: no RISK FACTORS HISTORY OF: Surgery to Spine/Hip(right/left)/Wrist (right/left): no MEDICATIONS: Thyroid Medications: thyroid How Lon years EXAM MEASUREMENTS: Bone mineral densitometry was performed using the Zing System. Bone mineral density as measured about the Lumbar spine is: ----- L1-L4(G/cm2): 1.091 T Score Values are as follows: ----- L1: -00.6 ----- L2: -1.1 ----- L3: -1.0 ----- L4: -0.3 ----- L1-L4: -0.7 Z Score Values are as follows: ----- L1: -1.2 ----- L2: -1.7 ----- L3: -1.6 ----- L4: -0.8 ----- L1-L4: -1.3 Bone mineral density has: decreased -2.5 % since study of: 11.19.2022 Bone mineral density about the R hip (g/cm2): 0.831 Bone mineral density about the L hip (g/cm2): 0.935 T Score values are as follows: -----R Neck: -1.2 -----L Neck: -2.2 -----R Total: -1.4 -----L Total: -0.6 Z Score values are as follows: -----R Neck: -1.1 -----L Neck: -2.1 -----R Total: -1.7 -----L Total: -0.8 Bone mineral density has: increased0.8 % since study of: 4.7.2022 FRAX%s: The graph provided illustrates a 10.5% chance for a major osteoporotic fx and a 1.6% chance f or the hips probability for fx in 10 years time. IMPRESSION: Osteopenia (T Score between -2.5 and -1). There is slightly increased risk of fracture and the patient may be considered for treatment. Re-Screen 2-5 years. NOTE: T-SCORE=SD OF THE YOUNG ADULT MEAN. [facility], , 01/29/2025 3:53 PM
--- NOTE | 2025-01-29 16:58 | MM ---
Reason for Exam: Screening (asymptomatic). Last mammogram was performed 1 year(s) and 1 month(s) ago. Patient History: Menarche at age 12. First Full-Term at age 29. Left ovary removed at age 31. Right ovary removed at age 31. Hysterectomy at age 31. Postmenopausal. Other cancer, age 46. 2000, Benign Excisional Biopsy on the left side. Maternal aunt had breast cancer. Risk Values: Annamarie 5 year model risk: 1.6%. NCI Lifetime model risk: 12.0%. Prior Study Comparison: 07/17/2018 Left Diagnostic Mammogram, [facility]. 11/19/2022 Bilateral MG 3D diag mammo w/cad [facility], [facility]. 01/12/2024 Bilateral MG 3D screening mammo w/cad, [facility]. Tissue Density: There are scattered areas of fibroglandular density. Findings: Analyzed By CAD. There is no suspicious group of microcalcifications or new suspicious mass in either breast. Overall Assessment: Negative, BI-RAD 1 Management: Screening Mammogram of both breasts in 1 year. Patient should continue monthly self-breast exams. A clinical breast exam by your physician is recommended on an annual basis. This exam should not preclude additional follow-up of suspicious palpable abnormalities. Note on Annamarie scores and lifetime risk: 1. A Annamarie score greater than 3% is considered moderate risk. If this is the case, consider specialist referral to assess eligibility for a risk reducing agent. 2. If overall lifetime risk for the development of breast cancer is 20% or higher, the patient may qualify for future screening with alternating mammogram and breast MRI. [facility], , 01/29/2025 4:55 PM. Electronically signed and approved by: Paula Womack M.D. Radiologist
== END | disposition home or self-care (01) ==
LOC: RADMAMWWP 15:06
PROVIDERS: ATTEND Family Medicine
DX: Z12.31 Encounter for screening mammogram for malignant neoplasm of breast (principal); R92.323 Mammographic fibroglandular density, bilateral breasts; M81.0 Age-related osteoporosis without current pathological fracture; M85.89 Other specified disorders of bone density and structure, multiple sites; Z78.0 Asymptomatic menopausal state; Z80.3 Family history of malignant neoplasm of breast
CPT/HCPCS: 77063; 77067; 77080

== ENCOUNTER → 2025-02-01 | Outpatient (CLI) | payer MEDICARE ==
[2025-02-01 15:43] LABS: Basophils # (A) 0.05 X 10*3/uL (0.00-0.10); Basophils % (A) 0.6 %; Eosinophils # (A) 0.21 X 10*3/uL (0.04-0.35); Eosinophils % (A) 2.4 %; HCT 37.8 % (37.2-46.3); HGB 11.2 g/dL (12.0-15.0); Lymphocytes # (A) 2.86 X 10*3/uL (0.90-5.00); Lymphocytes % (A) 33.2 %; MCH 23.9 pg (27.0-32.0); MCHC 29.6 g/dL (32.0-37.0); MCV 80.6 FL (80.0-97.0); Mean Platelet Volume 10.5 FL (9.5-12.2); Monocytes # (A) 0.57 X 10*3/uL (0.20-1.00); Monocytes % (A) 6.6 %; NRBC Per 100 WBC 0 X 10*3/uL (0.00-0.01); Neutrophils % (A) 56.9 %; Platelet Count 361 X 10*3/uL (140-440); RBC 4.69 X 10*6/uL (4.10-5.20); RDW 15.3 % (11.5-14.5); WBC 8.62 X 10*3/uL (4.50-10.00)
[2025-02-01 16:06] LABS: ALT 15 U/L (8-44); AST 15 U/L (13-35); Albumin/Globulin Ratio 2.11 Ratio (1.60-3.17); Alkaline Phosphatase 88 U/L (41-126); Blood Urea Nitrogen 12.6 mg/dL (9.0-27.0); Calcium 7.6 mg/dL (8.7-10.3); Carbon Dioxide 25.3 mmol/L (21.6-31.8); Chloride 102 mmol/L (96-109); Chol/HDL Ratio 4.45 Ratio; Globulin 1.9 g/dL (1.6-3.3); Glucose 89 mg/dL (70-110); LDL Cholesterol,Calculated 145.3 mg/dL (0.0-131.0); Potassium 3.9 mmol/L (3.5-5.5); Sodium 139 mmol/L (135-145); Total Bilirubin 0.4 mg/dL (0.3-1.2); Total Protein 5.9 g/dL (6.2-8.2); VLDL Calculation 19.12 mg/dL (5.00-40.00)
== END | disposition home or self-care (01) ==
LOC: LABWHC1 08:27
PROVIDERS: ATTEND Family Medicine
DX: Z00.00 Encounter for general adult medical examination without abnormal findings (principal); K21.9 Gastro-esophageal reflux disease without esophagitis; G90.512 Complex regional pain syndrome I of left upper limb; E66.01 Morbid (severe) obesity due to excess calories; Z68.43 Body mass index [BMI] 50.0-59.9, adult
CPT/HCPCS: 36415; 80053; 80061; 85025